=== PATIENT | male | born 1935 | race Caucasian/White ===

== ENCOUNTER 2016-11-21 09:21 | Outpatient (CLI) | payer MEDICARE | END 2016-11-21 09:22 | disposition home or self-care (01) | LOC: BURLAB 09:21 | PROVIDERS: ATTEND Internal Medicine Cardiovascular Disease | DX: E78.00 Pure hypercholesterolemia, unspecified (principal); Z79.899 Other long term (current) drug therapy | CPT/HCPCS: 36415; 80061; 84450; 84460 ==

== ENCOUNTER 2017-08-05 09:24 | Outpatient (CLI) | payer MEDICARE ==
[2017-08-05 10:21] LABS: Anion Gap 14 mmol/L (10-20); BUN (Urea Nitrogen) 14 mg/dL (8.4-25.7); Calc. Creatinine Clearance 0 mL/min (70-130); Calcium 8.8 mg/dL (7.8-10.44); Carbon Dioxide 26 mmol/L (23-31); Chloride 109 mmol/L (98-107); Estimated GFR-MDRD 85; Glucose 88 mg/dL (83-110); Potassium 4.8 mmol/L (3.5-5.1); Sodium 144 mmol/L (136-145)
== END 2017-08-05 09:25 | disposition home or self-care (01) ==
LOC: BURLAB 09:24
PROVIDERS: ATTEND Internal Medicine Cardiovascular Disease
DX: I10 Essential (primary) hypertension (principal); Z79.899 Other long term (current) drug therapy
CPT/HCPCS: 36415; 80048

== ENCOUNTER 2019-07-20 16:36 | Outpatient (CLI) | payer MEDICARE ==
--- NOTE | 2019-07-20 21:38 | RAD ---
LEFT HIP TWO VIEWS: 07/20/19 No fracture or dislocation was seen. There is no area of bony destruction. The joint space is normal in width. Degenerative changes are very minor for age. IMPRESSION: No acute finding. POS: HOME
== END 2019-07-20 16:37 | disposition home or self-care (01) ==
LOC: BURRAD 16:36
PROVIDERS: ATTEND Physician Assistant
DX: M25.552 Pain in left hip (principal)